=== PATIENT | male | born 1975 | race Caucasian/White ===

== ENCOUNTER 2021-10-08 06:39 | Day surgery (SDC) | payer BC ==
[~2021-10-08] VITALS: Ht 182.9 cm; Wt 102.0 kg
--- NOTE | 2021-10-08 08:00 | NUR ---
10/08/21 0800 Marta Blankenship PATIENT'S OXYGEN SATURATION DECREASES TO 87% ON RA - OXYGEN INCREASED TO 2L VIA NC.
--- NOTE | 2021-10-08 08:45 | OR ---
[facility] [address] [place], [place] [address] Signed DATE OF OPERATION: 10/08/2021 SURGEON: America Santiago MD PREOPERATIVE DIAGNOSIS: Screening. POSTOPERATIVE DIAGNOSIS: 4 mm polyp mid right colon. PROCEDURE: Colonoscopy with hot biopsy. ESTIMATED BLOOD LOSS: None. INDICATIONS: Mansi is a 46-year-old gentleman, who was asked to come see me for his 1st screening colonoscopy by his insurance company as well as his . He said he has no lower GI complaints. There is no family history of colon cancer or polyps. In the office, I gave him a pamphlet on colonoscopy. He understands the nature of the test. There is risk including, but not limited to gas bloating, crampy abdominal pain, bleeding, perforation requiring surgery, and missed diagnosis. He also understands the need for IV conscious sedation. He had expressed understanding and wished to proceed. PROCEDURE NOTE: Mansi was taken into our endoscopy suite and placed in the left lateral decubitus position. He was given 9 mg of Versed and 175 mcg of fentanyl to cover the case. Even then, he was frequently awake and moaning in pain and made the procedure much more technically difficult. He was pushing back on the camera and it took longer to advance the scope. In that regard, he really needs monitored anesthesia care with propofol in the future. We finally made our way up to the cecum. We took pictures throughout for photodocumentation. We could see the base of the cecum as well as ileocecal valve. The scope was then slowly withdrawn. He had a very small polyp in the mid right colon which we removed with a hot biopsy forceps. The rest of the colon was unremarkable. The rectum was unremarkable. He frequently was awake throughout the test and his heart rate would drop from the 70s down into the 40s. Again, he is much better served with propofol in the future. His prep was overall adequate, although he would be amos to use more prep in the future. Once in the rectum, the scope was retroflexed and there was no additional pathology noted above the anal canal. After this, the gas was suctioned out Electronically Signed By: AMERICA SANTIAGO MD 10/08/21 0845 PATIENT NAME: MANSI BLOUNT OPERATIVE REPORT DATE OF : 73 REPORT #: [id number] PHYSICIAN: AMERICA SANTIAGO MD PCP: FABRICIO CRUZ MD REPORT IS CONFIDENTIAL AND NOT TO BE RELEASED WITHOUT AUTHORIZATION [address] [address] Signed and the colonoscope removed. Overall, Mansi tolerated the procedure well. RECOMMENDATIONS: Mansi will follow up in my office in 7 to 14 days to review his results. He will need monitored anesthesia care in the future. He needs to use a double bowel prep in the future. MD KHADAR Hoover/DREAL /[id number] cc: MD America Joseph MD Copies: FABRICIO CRUZ MD, ANDREW L MD ~ Electronically Signed By: AMERICA SANTIAGO MD 10/08/21 0845 PATIENT NAME: MANSI BLOUNT OPERATIVE REPORT DATE OF : 73 REPORT #: [id number] PHYSICIAN: AMERICA SANTIAGO MD PCP: FABRICIO CRUZ MD REPORT IS CONFIDENTIAL AND NOT TO BE RELEASED WITHOUT AUTHORIZATION
--- NOTE | 2021-10-08 09:25 | NUR ---
PT ALERT, ORIENTED AND HERE FOR HIS FIRST SCOPE. ALL QUESTIONS ASKED ANSWERED PT REQUESTED PRAYER. CO-WORKER WILL BE HERE [place]. WILL FOLLOW
--- NOTE | 2021-10-09 17:11 | PATH ---
[facility] [address] [place], [place] [address] Signed SPECIMEN(S): A ASCENDING/RIGHT MID COLON POLYP SPECIMEN SOURCE: A. ASCENDING/RIGHT MID COLON POLYP CLINICAL HISTORY: Initial screening colonoscopy. FINAL PATHOLOGIC DIAGNOSIS: Colon, ascending/mid right, polyp, polypectomy: - Tubular adenoma. - Negative for high-grade dysplasia or malignancy. NAL:cml:C2NR MICROSCOPIC EXAMINATION: Histologic sections of all submitted blocks are examined by light microscopy. These findings, together with the gross examination, support the pathologic diagnosis. GROSS DESCRIPTION: The specimen, labeled "Elsa, polyp, mid right," is received in formalin and consists of a single fragment of smith tissue (0.2 x 0.2 x 0.2 cm). The specimen is submitted entirely in (A1). KD (under the direct supervision of a pathologist) The Gross Description was prepared using a voice recognition system. The report was reviewed for accuracy; however, sound-alike word errors, addition and/or deletions may occur. If there is any question about this report, please contact Client Services. PERFORMING LABORATORY: The technical component was performed by [email or web address], [address] [place] [id number] (CLIA# [id number]). [email or web address] [address] [address] (CLIA# [id number]). Diagnostician: Lian Salgado MD Pathologist Electronically Signed 10/09/2021 PATIENT NAME: MANSI BLOUNT PATHOLOGY DATE OF : 73 REPORT #: [id number] PHYSICIAN: SH[facility] PATHOLOGY PCP: FABRICIO CRUZ MD REPORT IS CONFIDENTIAL AND NOT TO BE RELEASED WITHOUT AUTHORIZATION [address] [place], [place] [address] Signed Copies: ~ PATIENT NAME: MANSI BLOUNT PATHOLOGY DATE OF : 73 REPORT #: [id number] PHYSICIAN: SHEREEN PATHOLOGY PCP: FABRICIO CRUZ MD REPORT IS CONFIDENTIAL AND NOT TO BE RELEASED WITHOUT AUTHORIZATION
== END 2021-10-08 08:30 | disposition home or self-care (01) ==
LOC: DS 06:39 → OPS 06:39 → DS 07:30 → OPS 07:30
PROVIDERS: ATTEND Colon & Rectal Surgery
PROC: 0DBF8ZX Excision of Right Large Intestine, Via Natural or Artificial Opening Endoscopic, Diagnostic (ICD-10-PCS; principal; 2021-10-08 07:30)
DX: Z12.11 Encounter for screening for malignant neoplasm of colon (principal); D12.2 Benign neoplasm of ascending colon
CPT/HCPCS: 99153; G0500; J2250; J3010; J7121